=== PATIENT | female | born 1985 | race Caucasian/White ===

== ENCOUNTER 2018-03-18 21:13 | Inpatient (IN) | payer OTHER ==
[~2018-03-18 21:13] MED LIST: Bupivacaine 0.25% HCL 30 ML VIAL ONE
[2018-03-18 21:45] VITALS: BMI 31.6
[2018-03-18] MEDS ORDERED: Meperidine HCl/PF 25 MG/ML VIAL IM/IV PRN (22:14)
[2018-03-18] MEDS ORDERED: Zolpidem Tartrate 5 MG TAB PO PRN (22:14)
[2018-03-18] MEDS ORDERED: Promethazine HCl 25 MG/ML VIAL IM PRN ×2 (22:14→23:33)
[2018-03-18] MEDS ORDERED: Misoprostol 200 MCG TAB PR PRN (22:14)
[2018-03-18] MEDS ORDERED: Lidocaine 1% (PF) 30 ML VIAL SC PRN (22:14)
[2018-03-18] MEDS ORDERED: Butorphanol Tartrate 1 MG/ML VIAL SLOW IVP PRN (22:14)
[2018-03-18] MEDS ORDERED: Ibuprofen 800 MG TAB PO PRN (22:14)
[2018-03-18] MEDS ORDERED: Acetaminophen 500 MG TAB PO PRN (22:14)
[2018-03-18] MEDS ORDERED: HYDROcodone/Acetaminophen 5/325 mg Tablet PO PRN (22:14)
[2018-03-18] MEDS ORDERED: Methylergonovine 0.2 MG/ML VIAL IM PRN (22:14)
[2018-03-18] MEDS ORDERED: Lactated Ringer's 1,000 ML IV SCH (22:15)
[2018-03-18] MEDS ORDERED: NS w/ Oxytocin 10 units 500 ML IV SCH (22:15)
--- NOTE | 2018-03-18 22:21 | PDOC.LDHP ---
Labor and Delivery H&P Chief complaint: contractions HPI: 32 yo CATHY presents c/o regular UCs since 5 PM. Denies bleeding, SROM. Current gestational age (weeks): 39 Due date: 03/19/18 Dating criteria: last menstrual period Grav: 2 Para: 1 OB History Details: PNC with Dr. Mitchell w/o complications. On Valtrex for ppx of HSV, no recent sxs. or outbreaks. Reports + for GBS. Current complications: none Abnormal US findings: No Past Medical History: h/o HSV Current medications: pre- vitamins, iron, other (Valtrex) Previous surgical history: other (wisdom teeth) Allergies/Adverse Reactions: Allergies Allergy/AdvReac Type Severity Reaction Status Date / Time No Known Allergies Allergy Verified 03/18/18 21:36 Social history: none - Physical Exam Vital signs reviewed and normal: yes General: breathing through contractions Lungs: nonlabored breathing Abdomen: gravid Extremeties: trace edema FHT: variability present [place] contractions every: UCs q 2-3 min - Vaginal Exam cm dilated: 4 Effacement: 90% Station: -1 - OB Labs Blood type: unknown RH: unknown Antibody Screen: unknown HIV: unknown RPR: unknown HEPSAg: unknown 1 hour GCT: unknown GBS: positive - Assessment L&D Assessment: term patient in labor - Plan Plan: admit to L&D, GBS antibiotic prophylaxis, informed consent obtained, anesthesia consult for pain management (Dr. Mitchell notified of admit)
[2018-03-18] MEDS: Lactated Ringer's 1,000 ML IV SCH (22:30)
[2018-03-18] MEDS ORDERED: Penicillin G Potassium 5 MILL.UNITS in Sodium Chloride 0.9% 100 ML IVPB SCH (22:30)
[2018-03-18 22:39] LABS: Hemoglobin 12.2 g/dL (12.0-16.0); Mean Corpuscular HGB CONC 34.4 g/dL (32.0-36.0); Mean Corpuscular Hemoglobin 28.3 pg (27.0-31.0); Mean Corpuscular Volume 82.3 fL (78.0-98.0); Mean Platelet Volume 7.7 fL (7.4-10.4); Platelet Count 256 thou/uL (130-400); RBC Distribution Width 12.6 % (11.5-14.5); Red Blood Cell (RBC) Count 4.33 mill/uL (4.20-5.40); White Blood Cell (WBC) Count 10.4 thou/uL (4.8-10.8)
[2018-03-18] MEDS ORDERED: Fentanyl 4 mcg/Bup 0.1% Cadd 100 ML ONE (22:54)
--- NOTE | 2018-03-18 23:00 | PDOC.EVN ---
Event Note - Event Note Event Note: No record available, will start PCN for GBS ppx per pts report of +GBS. Exam shows no lesions present. FHTs stable. UCs q 2-3 min.
[2018-03-18 23:16] LABS: Syphilis Antibody Nonreactive (Nonreactive); Syphilis Antibody Index 0.04 S/CO (<1.00 Non-Reactive)
[2018-03-18] MEDS ORDERED: diphenhydrAMINE 50 MG/ML VIAL IVP PRN (23:33)
[2018-03-18] MEDS ORDERED: Lactated Ringer's 500 ML IV PRN (23:33)
[2018-03-18] MEDS ORDERED: ePHEDrine/0.9% NaCl/PF SYRINGE 50 mg/10 ml SLOW IVP PRN (23:33)
[2018-03-18] MEDS ORDERED: Ondansetron PF 4 MG/2 ML Vial IVP PRN (23:33)
[2018-03-18] MEDS ORDERED: Naloxone HCl 0.4 mg/ml Vial IVP PRN ×2 (23:33)
[2018-03-18] MEDS ORDERED: Eucerin (Mineral Oil/Petrolatum,White) 30 gm Jar TOP PRN (23:33)
[2018-03-18] MEDS ORDERED: Acetaminophen 325 MG TAB PO PRN (23:33)
[2018-03-18] MEDS ORDERED: Communication Order-Pharmacy FS SCH (23:45)
[2018-03-19 00:46] LABS: HBSAg Index 0.18 S/CO (0-0.99)
[2018-03-19] MEDS: Lactated Ringer's 1,000 ML IV SCH ×3 (01:30→12:23)
[2018-03-19 01:43] LABS: Hep B Surf Ag NonReactive S/CO (NonReactive)
[2018-03-19] MEDS: Ondansetron PF 4 MG/2 ML Vial IVP PRN ×2 (01:43→06:44)
[2018-03-19] MEDS: Penicillin G 2.5 MILL.units 2.5 MILL.UNITS in Premix Bag 1 BAG IVPB SCH ×4 (03:01→16:59)
--- NOTE | 2018-03-19 05:03 | PDOC.EVN ---
Event Note - Event Note Event Note: Comfortable with epidural. 2nd dose of Pen G given. Last exam by RN= 6-7 cm. FHTs stable. UCs q 2-3 min. A/P: Progressing, expect .
[2018-03-19] MEDS: Fentanyl 4 mcg/Bupivacaine 0.1% Cassette 100 ML EPIDURAL SCH ×3 (05:17→13:20)
--- NOTE | 2018-03-19 09:07 | PDOC.LDPN ---
Labor & Delivery Progress Note - Subjective Subjective: comfortable - Objective Vital signs reviewed and normal: yes General: NAD Uterine fundus: non tender Dilation: 7 Effacement: 90% Station: -2 FHT: category 1 [place] contractions every: 2-4min AROM: clear fluid - Assessment (1) Term Code(s): Z34.80 - ENCOUNTER FOR SUPRVSN OF NORMAL , UNSP TRIMESTER Current Visit: Yes Status: Acute Plan: continue plan of care
[2018-03-19] MEDS ORDERED: Fentanyl 4 mcg/Bup 0.1% Cadd 100 ML ONE ×2 (09:34→13:11)
[2018-03-19] MEDS ORDERED: Lidocaine 1.5%/Epinephrine 1:200,000 5 ML AMPUL IJ ONE (13:53)
[2018-03-19] MEDS ORDERED: Gentamicin Sulfate 120 MG in Premix Bag 1 BAG IVPB SCH (14:45)
[2018-03-19] MEDS ORDERED: Acetaminophen 500 MG TAB PO SCH (14:45)
[2018-03-19] MEDS ORDERED: Ampicillin 2 GM in Sodium Chloride 0.9% 100 ML IVPB SCH (15:00)
[2018-03-19] MEDS: NS / Oxytocin 40 units/1000ml 1,000 ML IV PRN ×2 (15:38→16:36)
--- NOTE | 2018-03-19 16:01 | PDOC.OPDEL ---
OB Operative/Delivery Note Delivery Dr/Surgeon: Paula Assist: n/a Pre-Delivery Diagnosis: active labor, other (chorioamnionitis) Procedure/Post Delivery Dx: spontaneous vaginal delivery Weeks gestation: 40 Anesthesia: epidural - Findings A Sex: male - 1 min: 8 - 5 min: 9 - Additional Findings/Plan Placenta delivered: spontaneous Repaired Obstetrical Laceration: 1st degree (repaired with 2-0 vicryl for reapproximation) Estimated blood loss: 100 Compilations/Other Findings: body cord x 1, compound presentation Post delivery plan: routine recovery
[2018-03-19 16:56] LABS: HIV 1/2 INDEX 0.12 S/CO (<1.00); Hep C IgG Ab Non-Reactive (NonReactive); Hep C Index 0.04 S/CO (0-0.79)
[2018-03-19 17:08] LABS: HIV (1/2) Antibody/Antigen NonReactive (NonReactive)
[2018-03-19] MEDS: HYDROcodone/Acetaminophen 5/325 mg Tablet PO PRN ×2 (19:07→19:59)
[2018-03-19] MEDS ORDERED: Milk Of Magnesia 30 ML UDCUP PO PRN (21:27)
[2018-03-19] MEDS ORDERED: diphenhydrAMINE 25 MG CAP PO PRN (21:27)
[2018-03-19] MEDS ORDERED: Benzocaine/Menthol 20-0.5% 60 ML CAN TOP PRN (21:27)
[2018-03-19] MEDS ORDERED: Ondansetron PF 4 MG/2 ML Vial IVP PRN (21:27)
[2018-03-19] MEDS ORDERED: Adacel (T-DAP) 0.5 ML VIAL IM ONE (21:27)
[2018-03-19] MEDS ORDERED: HYDROcodone/Acetaminophen 5/325 mg Tablet PO PRN ×2 (21:27)
[2018-03-19] MEDS ORDERED: Preparation H Ointment 28 GM TUBE PR PRN (21:27)
[2018-03-19] MEDS ORDERED: NS / Oxytocin 40 units/1000ml 1,000 ML IV SCH (21:27)
[2018-03-19] MEDS ORDERED: Promethazine HCl 25 MG/ML VIAL IM PRN (21:27)
[2018-03-19] MEDS ORDERED: Bisacodyl 10 MG SUPP PR PRN (21:27)
[2018-03-19] MEDS ORDERED: Gentamicin Sulfate 80 MG in Premix Bag 1 BAG IVPB SCH (23:00)
[2018-03-20] MEDS: Docusate Calcium (SURFAK) 240 MG CAP PO SCH ×3 (01:48→21:33)
[2018-03-20] MEDS: Ferrous Sulfate 325 MG TAB PO SCH ×3 (01:49→16:49)
[2018-03-20] MEDS: Ibuprofen 800 MG TAB PO SCH ×4 (01:49→21:33)
[2018-03-20] MEDS ORDERED: Lanolin Ointment 7 GM TUBE TOP PRN (02:42)
--- NOTE | 2018-03-20 07:55 | PDOC.PP ---
Post Progress Note Post Day #: 1 PO intake tolerated: yes Flatus: yes Ambulation: yes Vital Signs (12 hours) Temp Pulse Resp BP BP Pulse Ox 03/20/18 04:00 98.0 F 70 20 114/60 03/20/18 00:00 98.0 F 77 18 114/61 03/19/18 22:23 98 03/19/18 22:15 97.9 F 64 18 125/67 Weight Weight 184 lb - Physical Examination General: NAD Cardiovascular: RRR Respiratory: non-labored breathing Abdominal: no distention, appropriately TTP Fundus firm & at: umb Skin: no rash Neurological: no gross focal deficits Psychiatric: normal affect Result Diagrams: 03/18/18 22:25 Additional Labs: Post Labs Blood Type O POSITIVE 03/18/18 22:25 Hep Bs Antigen NonReactive S/CO (NonReactive) 03/18/18 22:25 (1) Term Code(s): Z34.80 - ENCOUNTER FOR SUPRVSN OF NORMAL , UNSP TRIMESTER Status: Acute - Assessment/Plan PPD1 s/p TSVD VSSAF Doing well lochia < menses Rh pos Rimm Cont PP care, home tomorrow.
[2018-03-21] MEDS ORDERED: Sodium Chloride 0.9% 10 ML ONE (06:14)
[2018-03-21] MEDS: Ibuprofen 800 MG TAB PO SCH ×2 (06:17→14:13)
[2018-03-21] MEDS: Ferrous Sulfate 325 MG TAB PO SCH ×2 (07:29→15:13)
[2018-03-21 07:48] VITALS: BP 113/66; TEMP 98
[2018-03-21] MEDS: Docusate Calcium (SURFAK) 240 MG CAP PO SCH (09:07)
--- NOTE | 2018-03-21 09:25 | PDOC.PP ---
Post Progress Note Post Day #: 2 PO intake tolerated: yes Flatus: yes Ambulation: yes Vital Signs (12 hours) Temp Pulse Resp BP Pulse Ox 03/21/18 07:47 98.0 F 61 16 113/66 98 03/21/18 02:53 97.9 F Weight Weight 184 lb - Physical Examination General: NAD Respiratory: non-labored breathing Abdominal: no distention, appropriately TTP Fundus firm & at: umb Skin: no rash Neurological: no gross focal deficits Psychiatric: normal affect Result Diagrams: 03/18/18 22:25 Additional Labs: Post Labs Blood Type O POSITIVE 03/18/18 22:25 Hep Bs Antigen NonReactive S/CO (NonReactive) 03/18/18 22:25 (1) Term Code(s): Z34.80 - ENCOUNTER FOR SUPRVSN OF NORMAL , UNSP TRIMESTER Status: Acute - Assessment/Plan PPD2 s/p TSVD VSSAF Doing well no issues lochia < menses Rh pos RImm DC home FU 6w
== END 2018-03-21 16:25 | disposition home or self-care (01) | DRG 805 ==
LOC: L&D/OP 21:13 → L&D 22:14 → 3SW 03-19 22:14
PROVIDERS: ADMIT Student in an Organized Health Care Education/Training Program; ATTEND Student in an Organized Health Care Education/Training Program
PROC: 10E0XZZ Delivery of Products of Conception, External Approach (ICD-10-PCS; principal; 2018-03-18)
PROC: 4A0HXCZ Measurement of Products of Conception, Cardiac Rate, External Approach (ICD-10-PCS; 2018-03-18)
PROC: 0HQ9XZZ Repair Perineum Skin, External Approach (ICD-10-PCS; 2018-03-18)
DX: O98.32 Other infections with a predominantly sexual mode of transmission complicating childbirth (principal); O41.1230 Chorioamnionitis, third trimester, not applicable or unspecified; Z37.0 Single live birth; A60.04 Herpesviral vulvovaginitis; Z3A.39 39 weeks gestation of pregnancy; O99.824 Streptococcus B carrier state complicating childbirth; O48.0 Post-term pregnancy; Z3A.40 40 weeks gestation of pregnancy; O70.0 First degree perineal laceration during delivery; O69.89X0 Labor and delivery complicated by other cord complications, not applicable or unspecified
CPT/HCPCS: 51702; 85027; 86780; 86803; 86850; 86900; 86901; 87340; 87389; 99285; J0290; J1580; J2001; J2405; J2540; J2550; J3490; J7050; S0020